=== PATIENT | female | born 1945 | race Hispanic/Latino ===

== ENCOUNTER 2021-07-08 11:47 | Inpatient (IN) | payer MEDICARE ==
[~2021-07-08] VITALS: Ht 165.1 cm; Wt 64.7 kg
[2021-07-08 12:32] LABS: BASOPHILS % (AUTO) 0.6 % (0.0-5.0); EOSINOPHILS % (AUTO) 3.3 % (0.0-8.0); HEMATOCRIT 30.3 % (36-48); LYMPHOCYTES % (AUTO) 7.6 % (21.0-51.0); MEAN CORPUSCULAR HEMOGLOBIN 29.1 pg (27.0-33.0); MEAN CORPUSCULAR HGB CONC 32.7 g/dL (32.0-36.0); MEAN CORPUSCULAR VOLUME 89.1 fL (79-99); MONOCYTES % (AUTO) 15.2 % (3.0-13.0); NEUTROPHILS % (AUTO) 72.4 % (40.0-77.0); NUCLEATED RED BLOOD CELLS 0.2 % (0.0-0.19); PLATELET COUNT (AUTO) 220 K/uL (130-400); RED CELL DISTRIBUTION WIDTH 18.4 % (11.0-15.5); WHITE BLOOD COUNT (AUTO) 9.4 K/uL (4.8-10.8)
[2021-07-08 12:44] LABS: INR 0.99 (0.85-1.15); PROTHROMBIN TIME 10.8 SEC (9.6-11.6)
[2021-07-08 12:45] LABS: PARTIAL THROMBOPLASTIN TIME 22.4 SEC (26.3-35.5)
[2021-07-08 12:46] LABS: ALBUMIN 2.5 g/dL (3.5-5.0); CARBON DIOXIDE 30 mmol/L (21-32); CHLORIDE 100 mmol/L (101-111); CREATININE 1.2 mg/dL (0.5-1.5); GLOMERULAR FILTR. RATE CALC 47 mL/min (>60); GLUCOSE,RANDOM 164 mg/dL (70-105); POTASSIUM 4.9 mmol/L (3.5-5.1); SODIUM SERUM 137 mmol/L (136-145); UREA NITROGEN, BLOOD 44 mg/dL (7-18)
[2021-07-08 12:50] LABS: ALANINE AMINOTRANSFERASE 25 U/L (12-78); BILIRUBIN,TOTAL 0.4 mg/dL (0.2-1.0); TOTAL PROTEIN, SERUM 6.8 g/dL (6.0-8.3)
[2021-07-08 13:32] LABS: ASPARTATE AMINOTRANSFERASE 43 U/L (10-37)
[2021-07-08 14:19] LABS: ACETAMINOPHEN < 1 mcg/mL (10-30); ALCOHOL, BLOOD < 3 mg/dL (0-10); SALICYLATE < 2.8 mg/dL (2.8-20.0)
[2021-07-08 14:30] VITALS: BP 132/51
[2021-07-08 14:51] LABS: APPEARANCE,URINE Clear (CLEAR); BILIRUBIN,URINE Negative (NEGATIVE); COLOR,URINE Yellow (YELLOW); GLUCOSE, URINE (UA) Negative (NEGATIVE); KETONES,URINE Negative (NEGATIVE); LEUKOCYTE ESTERASE ,URINE Small (NEGATIVE); NITRATE,URINE Negative (NEGATIVE); OCCULT BLOOD,URINE Negative (NEGATIVE); PROTEIN,URINE Trace mg/dL (NEGATIVE)
[2021-07-08 14:58] LABS: AMPHET/METH SCREEN,URINE NEGATIVE (NEGATIVE); BARBITURATE SCREEN, URINE NEGATIVE (NEGATIVE); BENZODIAZEPINES SCREEN,URINE NEGATIVE (NEGATIVE); CANNABINOID SCREEN,URINE NEGATIVE (NEGATIVE); COCAINE SCREEN,URINE NEGATIVE (NEGATIVE); OPIATE SCREEN,URINE NEGATIVE (NEGATIVE); PHENCYCLIDINE SCREEN,URINE NEGATIVE (NEGATIVE)
[2021-07-08 15:01] LABS: BACTERIA,URINE Few /HPF (None Seen); MUCUS,URINE Few LPF (None Seen); SQUAMOUS EPITHELIAL CELL,UR 0-2 /HPF (0-2); YEAST,URINE BUDDING Few /HPF (None Seen)
[2021-07-08 15:35] VITALS: BP 144/51
[2021-07-08] MEDS ORDERED: 0.9%NACL 1000ML 1,000 ML IV ONE (17:00)
[2021-07-08 18:00] VITALS: BP 140/51
[2021-07-08] MEDS ORDERED: ONDANSETRON 4MG INJ IVP PRN (19:30)
[2021-07-08] MEDS ORDERED: LACTULOSE 20 GM/30 ML UDCUP PO PRN (19:30)
[2021-07-08] MEDS ORDERED: ACETAMINOPHEN 650 MG/20.3 ML UDCUP GT PRN (19:30)
[2021-07-08 20:00] VITALS: BP 135/52
[2021-07-08 22:00] VITALS: BP 139/53
[2021-07-08] MEDS: 0.9%NACL 1000ML 1,000 ML IV SCH (22:00)
[2021-07-08] MEDS ORDERED: CLONIDINE HCL 0.1 MG TABLET PO PRN (22:30)
[2021-07-08] MEDS ORDERED: ACETAMINOPHEN 650 MG SUPPOSITORY RC PRN (22:30)
[2021-07-08] MEDS ORDERED: FUROSEMIDE 20MG VIAL IV SCH (22:30)
[2021-07-08 23:00] VITALS: BP 134/57
[2021-07-08] MEDS ORDERED: DEXTROSE 50%-WATER 50 ML DISP.SYRIN IV PRN (23:00)
[2021-07-08] MEDS ORDERED: KCL 20 MEQ ERTAB PO PRN (23:00)
[2021-07-08] MEDS ORDERED: LIDOCAINE HCL-MPF 1% 2ML VIAL IV PRN (23:00)
[2021-07-08] MEDS ORDERED: GLUCAGON 1MG KIT 1 MG ML IM PRN (23:00)
[2021-07-08] MEDS ORDERED: POTASSIUM CHLORIDE 20MEQ/100ML 100 ML IV PRN (23:00)
[2021-07-08] MEDS: FIBER GT SCH (23:30)
[2021-07-08] MEDS: NUT TX GLUC INTOL LF SOY GT SCH (23:30)
[2021-07-08] MEDS ORDERED: METO50TA18 PEG (23:49)
[2021-07-08] MEDS ORDERED: LEVE500L PEG (23:49)
[2021-07-08] MEDS ORDERED: HYDR100T27 PEG (23:49)
[2021-07-08] MEDS ORDERED: ATOR40TA69 PEG (23:49)
[2021-07-08] MEDS ORDERED: ALPR-409 PEG (23:49)
[2021-07-08] MEDS ORDERED: AMLO-258 PEG (23:49)
[2021-07-08] MEDS ORDERED: SULF1TAB42 PEG (23:49)
[2021-07-09 04:00] VITALS: BP 146/55
[2021-07-09 05:11] LABS: MEAN CORPUSCULAR HEMOGLOBIN 28.1 pg (27.0-33.0); MEAN CORPUSCULAR HGB CONC 31.4 g/dL (32.0-36.0); MEAN CORPUSCULAR VOLUME 89.5 fL (79-99); RED BLOOD CELL COUNT(AUTO) 3.13 MIL/uL (4.00-5.50); RED CELL DISTRIBUTION WIDTH 18.6 % (11.0-15.5); WHITE BLOOD COUNT (AUTO) 10.7 K/uL (4.8-10.8)
[2021-07-09 05:36] LABS: INR 1.02 (0.85-1.15); PROTHROMBIN TIME 11.1 SEC (9.6-11.6)
[2021-07-09 05:37] LABS: CREATININE 1.1 mg/dL (0.5-1.5); MAGNESIUM 2.7 mg/dL (1.80-2.40); PHOSPHORUS 4.2 mg/dL (2.5-4.9); POTASSIUM 4.5 mmol/L (3.5-5.1); THYROID STIMULATING HORMONE 4.01 uIU/mL (0.36-3.74)
[2021-07-09] MEDS: NUT TX GLUC INTOL LF SOY GT SCH ×5 (06:37→23:18)
[2021-07-09] MEDS: FIBER GT SCH ×5 (06:37→23:18)
[2021-07-09] MEDS: 0.9%NACL 1000ML 1,000 ML IV SCH ×3 (06:37→17:01)
[2021-07-09 07:05] VITALS: BP 133/46
[2021-07-09] MEDS ORDERED: IOHEXOL-350 50ML VIAL IV ONE (08:46)
[2021-07-09] MEDS ORDERED: ENOXAPARIN SODIUM 40 MG/0.4 ML SYRINGE SQ SCH (09:00)
[2021-07-09] MEDS ORDERED: PAMIDRONATE DISODIUM 90MG VIAL 90 MG in 0.9%NACL 1000ML 1,000 ML IV SCH (09:00)
[2021-07-09] MEDS: FAMOTIDINE 20MG VIAL IV SCH (09:17)
[2021-07-09] MEDS: ENOXAPARIN SODIUM 40 MG/0.4 ML SYRINGE SQ SCH (09:18)
[2021-07-09 11:10] VITALS: BP 133/51
[2021-07-09 16:16] VITALS: BP 145/52
[2021-07-09 20:00] VITALS: BP 184/71
[2021-07-09] MEDS: HYDRALAZINE 20MG/ML VIAL IV PRN (20:40)
[2021-07-10] VITALS (12 sets, daily range): BP systolic 133–173; BP diastolic 49–70
[2021-07-10] MEDS: 0.9%NACL 1000ML 1,000 ML IV SCH ×6 (01:24→23:28)
[2021-07-10] MEDS: FIBER GT SCH ×5 (05:15→23:29)
[2021-07-10] MEDS: NUT TX GLUC INTOL LF SOY GT SCH ×5 (05:15→23:29)
[2021-07-10] MEDS ORDERED: IOHEXOL 350 MG/ML 100ML INFUS..BTL IV ONE (08:26)
[2021-07-10] MEDS: ENOXAPARIN SODIUM 40 MG/0.4 ML SYRINGE SQ SCH (09:00)
[2021-07-10] MEDS: FAMOTIDINE 20MG VIAL IV SCH (09:00)
[2021-07-10] MEDS ORDERED: MIDAZOLAM HCL 1 MG/ML 2ML VIAL ONE (11:32)
[2021-07-10] MEDS ORDERED: FENTANYL CITRATE PF 50 MCG/1 ML 2ML VIAL ONE (11:32)
[2021-07-10 13:59] LABS: CREATININE 1.1 mg/dL (0.5-1.5); POTASSIUM 3.3 mmol/L (3.5-5.1)
[2021-07-10] MEDS: DEXAMETHASONE SOD PHOSPHATE 4 MG/ML 1ML VIAL IVP SCH ×2 (14:20→21:06)
[2021-07-10] MEDS: POTASSIUM CHLORIDE 10% ELIXIR 20 MEQ/15 ML UDCUP PO PRN ×3 (14:21→23:26)
[2021-07-11] VITALS (7 sets, daily range): BP systolic 158–185; BP diastolic 69–88
[2021-07-11 05:14] LABS: HEMATOCRIT 31.3 % (36-48); MEAN CORPUSCULAR HEMOGLOBIN 28.1 pg (27.0-33.0); MEAN CORPUSCULAR VOLUME 90.7 fL (79-99); RED BLOOD CELL COUNT(AUTO) 3.45 MIL/uL (4.00-5.50); RED CELL DISTRIBUTION WIDTH 19.2 % (11.0-15.5); WHITE BLOOD COUNT (AUTO) 9.2 K/uL (4.8-10.8)
[2021-07-11 05:29] LABS: CREATININE 1.3 mg/dL (0.5-1.5); POTASSIUM 4.9 mmol/L (3.5-5.1)
[2021-07-11] MEDS: DEXAMETHASONE SOD PHOSPHATE 4 MG/ML 1ML VIAL IVP SCH ×3 (05:47→22:15)
[2021-07-11] MEDS: 0.9%NACL 1000ML 1,000 ML IV SCH ×4 (05:47→23:08)
[2021-07-11] MEDS: FIBER GT SCH ×5 (05:58→23:40)
[2021-07-11] MEDS: NUT TX GLUC INTOL LF SOY GT SCH ×5 (05:58→23:40)
[2021-07-11] MEDS: MORPHINE 2 MG SYG IVP PRN ×2 (10:10→18:06)
[2021-07-11] MEDS: ENOXAPARIN SODIUM 40 MG/0.4 ML SYRINGE SQ SCH (10:12)
[2021-07-11] MEDS: FAMOTIDINE 20MG VIAL IV SCH (10:12)
[2021-07-11] MEDS ORDERED: INSULIN HUMULIN R 100 UNIT/ML 3ML ONE (13:47)
[2021-07-11] MEDS: INSULIN HUMULIN R 100 UNIT/ML 3ML SQ SCH ×2 (13:50→21:57)
[2021-07-11] MEDS ORDERED: INSULIN HUMULIN R 100 UNIT/ML 3ML SQ SCH (16:30)
[2021-07-11] MEDS: INSULIN GLARGINE 100 UNITS/ML 10 ML VIAL SQ SCH (21:56)
[2021-07-12] MEDS: HYDRALAZINE 20MG/ML VIAL IV PRN (00:19)
[2021-07-12 03:32] VITALS: BP 172/79
[2021-07-12] MEDS: 0.9%NACL 1000ML 1,000 ML IV SCH ×2 (03:47→09:50)
[2021-07-12] MEDS: DEXAMETHASONE SOD PHOSPHATE 4 MG/ML 1ML VIAL IVP SCH (04:58)
[2021-07-12] MEDS: FIBER GT SCH ×3 (07:21→19:00)
[2021-07-12] MEDS: NUT TX GLUC INTOL LF SOY GT SCH ×3 (07:21→19:00)
[2021-07-12] MEDS: INSULIN GLARGINE 100 UNITS/ML 10 ML VIAL SQ SCH ×2 (07:26→21:47)
[2021-07-12] MEDS: INSULIN HUMULIN R 100 UNIT/ML 3ML SQ SCH ×4 (07:26→21:47)
[2021-07-12 08:00] VITALS: BP 163/72
[2021-07-12] MEDS: FAMOTIDINE 20MG VIAL IV SCH (09:44)
[2021-07-12] MEDS: ENOXAPARIN SODIUM 40 MG/0.4 ML SYRINGE SQ SCH (09:47)
[2021-07-12] MEDS: BALSAM PERU/CASTOR OIL 60 GM TUBE TP SCH (09:47)
[2021-07-12 12:00] VITALS: BP 183/79
[2021-07-12 16:00] VITALS: BP 124/58
[2021-07-12 20:00] VITALS: BP 142/54
[2021-07-12 23:52] VITALS: BP 157/68
[2021-07-13] MEDS: FIBER GT SCH ×5 (00:17→19:45)
[2021-07-13] MEDS: NUT TX GLUC INTOL LF SOY GT SCH ×5 (00:17→19:45)
[2021-07-13 04:00] VITALS: BP 159/75
[2021-07-13] MEDS: INSULIN HUMULIN R 100 UNIT/ML 3ML SQ SCH ×3 (06:35→17:29)
[2021-07-13] MEDS: INSULIN GLARGINE 100 UNITS/ML 10 ML VIAL SQ SCH ×2 (06:37→21:51)
[2021-07-13 08:00] VITALS: BP 142/52
[2021-07-13 12:00] VITALS: BP 171/69
[2021-07-13 16:00] VITALS: BP 161/68
[2021-07-13] MEDS: BALSAM PERU/CASTOR OIL 60 GM TUBE TP SCH (17:26)
[2021-07-13 20:03] VITALS: BP 157/87
== END 2021-07-13 22:10 | disposition hospice, home (50) | DRG 840 ==
LOC: EDH 11:47 → EDHIP 18:25 → 3BH 22:12
PROVIDERS: ADMIT Internal Medicine Critical Care Medicine; ATTEND Internal Medicine Critical Care Medicine
PROC: 07DR3ZX Extraction of Iliac Bone Marrow, Percutaneous Approach, Diagnostic (ICD-10-PCS; principal; 2021-07-10)
DX: C83.30 Diffuse large B-cell lymphoma, unspecified site (principal); G93.41 Metabolic encephalopathy; N17.9 Acute kidney failure, unspecified; C79.51 Secondary malignant neoplasm of bone; Z51.5 Encounter for palliative care; E83.52 Hypercalcemia; E78.5 Hyperlipidemia, unspecified; Z66 Do not resuscitate; D64.9 Anemia, unspecified; R59.0 Localized enlarged lymph nodes; E11.22 Type 2 diabetes mellitus with diabetic chronic kidney disease; E78.00 Pure hypercholesterolemia, unspecified; I12.9 Hypertensive chronic kidney disease with stage 1 through stage 4 chronic kidney disease, or unspecified chronic kidney disease; N18.9 Chronic kidney disease, unspecified; R62.7 Adult failure to thrive; L89.152 Pressure ulcer of sacral region, stage 2; Z68.23 Body mass index [BMI] 23.0-23.9, adult; Z74.01 Bed confinement status; Z91.81 History of falling; Z93.1 Gastrostomy status; Z87.891 Personal history of nicotine dependence; Z88.0 Allergy status to penicillin; Z79.899 Other long term (current) drug therapy; Z86.73 Personal history of transient ischemic attack (TIA), and cerebral infarction without residual deficits
CPT/HCPCS: 36415; 38222; 70470; 70490; 71045; 71260; 74177; 77012; 78306; 80048; 80053; 80305; 81001; 82330; 82948; 83735; 83970; 84100; 84145; 84443; 85025; 85027; 85610; 85730; 88184; 88185; 88189; A9503; G0378; G0481; J0360; J1100; J1650; J1815; J2250; J3010; J3490; J7030; Q9967